=== PATIENT | female | born 1965 | race Caucasian/White ===

== ENCOUNTER → 2017-07-10 | Outpatient (CLI) | payer BC ==
[~2017-07-10] MED LIST: CEPH500T PO; DOCU-143 PO; DOCU100C37 PO; ESTR1TAB24 PO; HYDR-3454 PO; HYDR-3816 PO; IBUP-1773 PO; LORA10TA7 PO; MELO15TA39 PO; SIME80TA16 PO
--- NOTE | 2017-07-10 14:07 | Diagnostic Imaging Report ---
EXAMINATION: Supine abdomen at 12:18 p.m. INDICATION: Abdominal pain. FINDINGS: There is gas in both the large and small bowel in a nonspecific fashion. The amount of gas in both the large and small bowel has increased since the prior exam of 09/05/2016; however, there is still no evidence for bowel obstruction. There is a fair amount of fecal material throughout the colon. There is no mass or organomegaly identified. The 4 mm calcific density overlying the midportion of the left kidney seen previously is again evident. There is also suggestion of a similar-sized calcification along the superior pole of the right kidney. These findings are suspicious for nephrolithiasis. No other pathological calcification is identified. There may be a small phlebolith along the pelvis. The osseous structures are intact. There is mild levoscoliosis of the lumbar spine and dextroscoliosis of the lower thoracic spine. IMPRESSION: 1. The bowel gas pattern is nonspecific. There is no acute abnormality identified. 2. There is a fair amount of fecal material throughout the colon. 3. The calcifications overlying the kidneys do suggest nephrolithiasis. If further study is desired, then CT will be recommended. Dictated by: Dictated on workstation # [id number]
== END ==
LOC: RAD 11:51
PROVIDERS: ATTEND Family Medicine
DX: N28.9 Disorder of kidney and ureter, unspecified (principal); R10.12 Left upper quadrant pain
CPT/HCPCS: 74000

== ENCOUNTER → 2017-07-19 | Outpatient (CLI) | payer BC ==
--- NOTE | 2017-07-19 09:35 | Diagnostic Imaging Report ---
PROCEDURE: CT abdomen and pelvis without contrast. TECHNIQUE: Multiple contiguous axial images were obtained through the abdomen and pelvis without the use of intravenous contrast. INDICATION: Abdominal pain. COMPARISON: 10/19/2010. FINDINGS: Included views of the lung bases are clear. CT ABDOMEN: Normal appendix cannot be adequately identified, but there is no pericecal inflammation. Small bowel loops are nondistended. Multiple cystic foci are noted within the inferior pole renal pelvis on the left and are likely on the basis of peripelvic cysts. These are slightly more prominent when compared to 10/19/2010. Otherwise, the kidneys have an unremarkable noncontrast CT appearance. No renal or ureteral calculi seen on either side. Additionally, there is no hydroureteronephrosis or other evidence of obstruction. The spleen, liver, pancreas, and adrenal glands have an unremarkable noncontrast CT appearance. There is no loculated fluid collection, free fluid, or free air within the abdomen. No abnormal mesenteric or retroperitoneal adenopathy is seen. Bony structures show no acute abnormalities. CT PELVIS: Urinary bladder is unopacified. No calculi are seen within urinary bladder. There is no loculated fluid collection, free fluid, nor free air. No abnormal adenopathy is seen. Bony structures show no acute abnormalities. IMPRESSION: 1. No renal or ureter calculi or evidence of obstruction on either side. 2. Probable peripelvic renal cysts on the left. 3. No other acute abnormalities are seen within the abdomen or pelvis. Dictated by: Dictated on workstation # [id number]
== END ==
LOC: RAD 07:59
PROVIDERS: ATTEND Family Medicine
DX: R10.12 Left upper quadrant pain (principal)
CPT/HCPCS: 74176

== ENCOUNTER → 2017-08-23 | Outpatient (CLI) | payer BC ==
--- NOTE | 2017-08-23 13:37 | Diagnostic Imaging Report ---
Bilateral screening mammogram 2D views with tomosynthesis. The current study was also evaluated with a Computer Aided Detection (CAD) system. INDICATION: Screening. No current complaints stated on the questionnaire. COMPARISON: 08/22/2016. FINDINGS: The breasts are composed of scattered fibroglandular densities. No mass, architectural distortion or suspicious cluster of calcifications seen. Allowing for technique and positional differences, no suspicious change is seen. IMPRESSION: No significant change. ACR BI-RADS Category 2: Benign findings. Result letter will be mailed to the patient. Note: At least 10% of breast cancer is not imaged by mammography. Dictated by: Dictated on workstation # [id number]
== END ==
LOC: RAD 07:19
PROVIDERS: ATTEND Family Medicine
DX: Z12.31 Encounter for screening mammogram for malignant neoplasm of breast (principal)
CPT/HCPCS: 77067

== ENCOUNTER → 2018-04-08 | Outpatient (CLI) | payer BC ==
[~2018-04-08] MED LIST changes: +CATHETER FLUSH 10 ML SYR IV PRN; +HYDR-34 PO; -HYDR-3816 PO
[2018-04-08 09:32] VITALS: BP 129/85
--- NOTE | 2018-04-08 13:48 | STRESS TEST ---
DATE OF SERVICE: 04/08/2018 EXERCISE MYOVIEW STRESS TEST REPORT REFERRING PHYSICIAN: Dr. Christopher Allison. Baseline heart rate is 47. Baseline blood pressure 141/83. Baseline EKG is sinus rhythm with no ischemic changes. In summary, the patient was injected with 10.54 mCi of technetium-99 Myoview and the resting images were obtained. Then, the patient started on the treadmill. Started having frequent atrial and ventricular premature contractions then she had few episodes of 3 beats, nonsustained ventricular tachycardia, ventricular bigeminy and trigeminy persisted during exercise. She was able to finish a total of 4 minutes and 30 seconds on standard Agus protocol, achieving maximum heart rate of 144, which is 86% of maximum expected heart rate. With peak exercise level, EKG was showing minimal nondiagnostic ST changes, but frequent PVCs and APCs and few short runs of nonsustained ventricular tachycardia. The resting and stress images were reviewed and compared in the short axis, horizontal long axis, and vertical long axis views. Review of the images showed mild decreased uptake at the mid to apical inferior wall and inferoseptum. SSS is 5, SDS 3, TID value 0.92. On the gated images, the left ventricle appeared to be in normal size with normal contractility. Calculated ejection fraction 69%. CONCLUSION: 1. Poor exercise tolerance, a total of 4 minutes 30 seconds on standard Agus protocol, total of 6.4 METS achieving 86% of maximum expected heart rate. 2. Exercise induced frequent premature ventricular ectopy, ventricular bigeminy and few runs of nonsustained ventricular tachycardia, 3 beats at most. 3. Mild ischemia involving the mid to apical inferior wall and inferoseptum. 4. Normal left ventricular size with normal contractility. Calculated ejection fraction 69%. Job ID: [id number] DocumentID: [id number] Dictated Date: 04/08/2018 11:24:35 Hr Coordinator Date: 04/08/2018 13:48:05 Dictated By: MANISHA ABDUL MD
== END ==
LOC: CARD 08:08
PROVIDERS: ATTEND Internal Medicine Cardiovascular Disease
DX: R07.89 Other chest pain (principal); R68.84 Jaw pain; R55 Syncope and collapse
CPT/HCPCS: 78452; 93017; 93306

== ENCOUNTER 2018-04-10 08:41 | Day surgery (SDC) | payer BC ==
[2018-04-10] VITALS (11 sets, daily range): BP systolic 103–120; BP diastolic 65–96
[~2018-04-10] VITALS: Ht 162.6 cm; Wt 55.3 kg
[~2018-04-10 08:41] MED LIST changes: -CATHETER FLUSH 10 ML SYR IV PRN
[2018-04-10] MEDS ORDERED: NS IV 1000 ML 3,000 ML ONE (08:49)
[2018-04-10 09:21] LABS: HEMOGLOBIN 14.7 G/DL (11.5-16.0); MEAN PLATELET VOLUME 10.5 FL (7.4-10.4); RED BLOOD COUNT 4.99 10^6/uL (4.35-5.85); RED CELL DISTRIBUTION WIDTH 13.1 % (10.0-14.5); WHITE BLOOD COUNT 4.2 10^3/uL (4.3-11.0)
[2018-04-10 09:33] LABS: PROTHROMBIN TIME PATIENT 12.9 SEC (12.2-14.7)
--- NOTE | 2018-04-10 09:35 | Diagnostic Imaging Report ---
Indication: Coronary artery disease Frontal chest obtained at 9:15 hours a.m. Heart is borderline in size. Mediastinal silhouette is unremarkable. There is mild dextroscoliotic change of the thoracic spine. There is no focal infiltrate or pneumothorax or pleural fluid. IMPRESSION: No acute process in the chest. Dictated by: Dictated on workstation # [id number]
[2018-04-10 09:44] LABS: ALANINE AMINOTRANSFERASE 11 U/L (0-55); ALBUMIN 4.6 GM/DL (3.2-4.5); ALKALINE PHOSPHATASE 60 U/L (40-136); BILIRUBIN,TOTAL 0.7 MG/DL (0.1-1.0); BUN/CREATININE RATIO 21; CALCIUM 9.4 MG/DL (8.5-10.1); CARBON DIOXIDE 25 MMOL/L (21-32); CHLORIDE 107 MMOL/L (98-107); CHOLESTEROL 224 MG/DL (< 200); CREATININE SERUM 0.77 MG/DL (0.60-1.30); GFR ESTIMATED > 60; GLUCOSE 75 MG/DL (70-105); HDL CHOLESTEROL 75 MG/DL (40-60); SODIUM 142 MMOL/L (135-145); TOTAL PROTEIN 7.2 GM/DL (6.4-8.2); TRIGLYCERIDES 74 MG/DL (<150); VLDL CHOLESTEROL 15 MG/DL (5-40)
[2018-04-10] MEDS ORDERED: NS IV 1000 ML 1,000 ML IV SCH ×2 (09:45→12:36)
--- NOTE | 2018-04-10 11:59 | Cardiac Procedure Note-CS/ASA ---
Pre-Procedure Note Pre-Op Procedure Note H&P Reviewed The H&P was reviewed, patient examined and no changes noted. Date H&P Reviewed: April 10, 2018 Time H&P Reviewed: 11:58 Conscious Sedation Pre-Proced Time Reviewed: 11:58 ASA Class: 3 Airway Mallampati Classification: ([place] appropriate class) I. II. III, IV Lungs Heart ASA score ASA 1: a normal healthy patient ASA 2: a patient with a mild systemic disease (mid diabetes, controlled hypertension, obesity x ASA 3: a patient with a severe systemic disease that limits activity (angina , COPD, prior Myocardial infarction) ASA 4: a patient with an incapacitating disease that is a constant threat to life (CHF, renal failure) ASA 5: a moribund patient not expected to survive 24 hrs. (ruptured aneurysm) ASA 6: a declared brain patient whose organs are being harvested. For emergent operations, add the letter E after the classification Grade 3 1 - Grade 3 Sedation Plan: Analgesia, Amnesia, Plan communicated to team members, Discussed options with patient/fam, Discussed risks with patient/fam Note The patient is an appropriate candidate to undergo the planned procedure, sedation, and anesthesia. The patient immediately re-assessed prior to indication. MANISHA ABDUL MD April 10, 2018 11:59
[2018-04-10] MEDS ORDERED: HEParin 1000 UNIT/ML (10ML VIAL) FOR BOLUS ONE (12:00)
[2018-04-10] MEDS ORDERED: LIDOCAINE 1% INJ 20 ML 20 ML VIAL ONE (12:00)
[2018-04-10] MEDS ORDERED: MIDAZOLAM 5 MG/5 ML (VERSED) VIAL ONE (12:03)
[2018-04-10] MEDS ORDERED: fentaNYL INJECTION 100 MCG/2 ML AMP ONE (12:03)
--- NOTE | 2018-04-10 12:39 | Discharge Inst-Post CATH ---
Discharge Inst-CATH Post Cardiac Cath D/C Inst Follow Up/Plan Appointment with Dr Malcolm in 2-[address] Escalante next week CARDIAC CATH DISCHARGE INSTRUCTIONS *Hold Metformin for 48 hours post heart cath. ACTIVITY * Go Home directly and rest. * Limit activity of the leg (or wrist if it was used) for 7 days including aerobics, swimming, jogging, bicycling, etc. * Restrict stair-climbing for 7 days if possible, if not, climb up with your non -cath leg, then bring together on the same step. * Avoid lifting, pushing, pulling or excessive movement of the affected extremity for 7 days. * Customary sexual activity may be resumed after 2 days-use caution not to use a position that strains or causes pain to the affected extremity. * No driving for 24 hours. * NO SMOKING. * Avoid straining for bowel movements for 7 days. * Gentle walking on level ground is allowed. * Returning to work will depend on the type of procedure and the results. Your doctor will discuss this with you. CALL YOUR DOCTOR FOR ANY OF THE FOLLOWING: *If bleeding from the puncture site occurs- Apply gentle pressure to site with clean cloth and call your doctor or EMS. * If a knot or lump forms under the skin, increases in size, or causes pain. * If bruising appears to be worsening or moving further down your leg instead of disappearing. * Temperature above 101 F. CARE OF YOUR GROIN INCISION; * Bruising or purple discoloration of the skin near the puncture site is common. * You may shower only, no bathtub bathing for 5 days. Be careful to avoid slipping as your leg may feel stiff. * If a closure device was used on your femoral artery, please see the attached guide regarding care of the device and your leg. * REMOVE the dressing from your groin the next day after your procedure in the shower. CARE OF YOUR WRIST INCISION; * Bruising or purple discoloration of the skin near the puncture site is common. * You may shower. * DO NOT submerge wrist. * Remove dressing in 24 hours. MANISHA MALCOLM MD April 10, 2018 12:38
--- NOTE | 2018-04-10 12:42 | Cardiac Cath Report ---
Cardiac Cath Report Physician (s)/Title Inspector (s) Physician MANISHA ABDUL MD Pre-Procedure Diagnosis Pre-Procedure Diagnosis: Ventricular tachycardia Post-Procedure Note Procedure Start Date: April 10, 2018 Name of Procedure: Left heart catheterization Findings/Procedure Note PROCEDURE NOTE: After explaining the procedure to the patient, all pros and cons were explained , all questions were answered. The patient signed the consent and then she was placed on the cardiac catheterization laboratory. Groin was prepped SL fashion local anesthesia was used. Sheath placed in the right femoral artery. Hazel right and left catheter were used to access the coronary system. Pigtail was used to access the left ventricular cavity. Left ventriculogram was done At the end of the procedure the sheath was removed. Closure device was used FINDINGS: Hemodynamics LV 91/10, end-diastolic pressure of 10 Aorta 95/52 L of 69 ANATOMY: Left Main is free of obstructive disease Left Anterior Descending is free of obstructive disease Left Circumflex is free of obstructive disease Right Coronory Artery is free of obstructive disease LV Gram was done showing normal LV size and function with ejection fraction 60 percent CONCLUSION: 1. Normal coronary system with nonobstructive disease 2. Normal left ventricular size and systolic function estimated ejection fraction 60 percent DISCUSSION AND RECOMMENDATION: Patient cannot tolerate beta blockers or calcium blockers due to hypotension, consideration for EP evaluation Anesthesia Type: Conscious Sedation Estimated blood loss (mL): 10 ml Contrast Amount: 36 ml Total Radiation Dose: 52 mGy Post-Procedure Diagnosis Post-operative diagnosis: Ventricular tachycardia Coronary artery disease Hypotension Arthritis MANISHA ABDUL MD April 10, 2018 12:42
[2018-04-10] MEDS ORDERED: PATIENT MAY USE OWN MEDS, ALL PO SCH (12:45)
== END 2018-04-10 17:00 | disposition home or self-care (01) ==
LOC: CATH 08:41 → SURG 12:57 → CATH 17:00
PROVIDERS: ATTEND Internal Medicine Cardiovascular Disease
DX: I47.2 Ventricular tachycardia (principal); I25.10 Atherosclerotic heart disease of native coronary artery without angina pectoris; I95.9 Hypotension, unspecified; K21.9 Gastro-esophageal reflux disease without esophagitis; R12 Heartburn; R55 Syncope and collapse; R06.02 Shortness of breath; R07.89 Other chest pain
CPT/HCPCS: 36415; 71045; 80053; 80061; 84443; 85027; 85610; 85730; 87081; 93458

== ENCOUNTER → 2018-08-08 | Outpatient (CLI) | payer BC ==
--- NOTE | 2018-08-08 19:16 | Diagnostic Imaging Report ---
INDICATION: Left flank pain. FINDINGS: Sonographic evaluation of the left kidney demonstrates the left kidney to measure 9.8 x 4.5 x 4.3 cm. There does appear to be some cortical thinning of the left kidney. There is an irregular cystic mass in the left kidney measuring approximately 2.2 x 2.7 x 1.2 cm. No internal blood flow is seen. No calculus or hydronephrosis is identified. The bladder is unremarkable. Left ureteral jet is visualized. IMPRESSION: Slightly irregular left renal cyst since study of 07/19/2017. No calculus or hydronephrosis is seen. Dictated by: Dictated on workstation # [id number]
== END ==
LOC: RAD 14:33
PROVIDERS: ATTEND Family Medicine
DX: N28.1 Cyst of kidney, acquired (principal)
CPT/HCPCS: 76775

== ENCOUNTER → 2018-08-27 | Outpatient (CLI) | payer BC ==
--- NOTE | 2018-08-27 12:55 | Diagnostic Imaging Report ---
INDICATION: Routine screening. COMPARISON: Comparison is made with prior study from 08/23/2017 and 08/22/2016. TECHNIQUE: 2D and 3D bilateral screening mammography was performed with computer-aided detection (CAD) system. 3D tomosynthesis was also performed and reviewed. FINDINGS: Scattered fibroglandular densities are identified bilaterally. The parenchymal pattern is stable. No dominant mass or malignant appearing microcalcifications are seen. The axillae are unremarkable. IMPRESSION: No mammographic features suspicious for malignancy are identified. ACR BI-RADS Category 1: Negative. Result letter will be mailed to the patient. Note: At least 10% of breast cancer is not imaged by mammography. Dictated by: Dictated on workstation # [id number]
== END ==
LOC: RAD 08:31
PROVIDERS: ATTEND Family Medicine
DX: Z12.31 Encounter for screening mammogram for malignant neoplasm of breast (principal)
CPT/HCPCS: 77067

== ENCOUNTER → 2018-10-01 | Outpatient (CLI) | payer BC ==
[~2018-10-01] MED LIST changes: +IOHEXOL 350 MG/ML 100 ML (OMNIPAQUE 350) VIAL IV ONE; +NS 250 ML (IVPB) BAG IV ONE; +RECEIVED CONTRAST (Hold Metformin) IV SCH
[2018-10-01 07:47] LABS: BUN/CREATININE RATIO 23; CREATININE SERUM 0.84 MG/DL (0.60-1.30); GFR ESTIMATED > 60
--- NOTE | 2018-10-01 11:30 | Diagnostic Imaging Report ---
PROCEDURE: CT abdomen and pelvis with and without contrast. TECHNIQUE: Precontrast acquisitions were acquired through the abdomen and pelvis. Multiple contiguous axial images were obtained through the abdomen and pelvis after the administration of intravenous contrast. INDICATION: Abdominal pain. FINDINGS: The previous CT abdomen/pelvis exam of 07/19/2017 suggested parapelvic renal cysts on the left but failed to show any sign of nephrolithiasis or urolithiasis. On this study, the parapelvic cysts on the left seen previously are again evident and do not seem to have changed significantly. There is still no evidence for nephrolithiasis or urolithiasis and the kidneys do not appear to be obstructed. There is no sign of a solid renal mass either. The liver is homogeneous and not enlarged. The spleen, pancreas, adrenals, gallbladder, aorta, and inferior vena cava show no sign of an acute abnormality. The stomach is not well distended and consequently difficult to assess. There is no pelvic mass or free fluid collection evident. There is a considerable amount of fecal material in the ascending colon and cecum. The appendix is not well visualized, but there are no indirect signs of acute appendicitis. The uterus is surgically absent. The urinary bladder is grossly unremarkable. The bony lesion of mixed density in the right ilium seen on the previous study is again evident and not significantly changed. There is no acute bony abnormality appreciated. The lung bases are clear. IMPRESSION: 1. There is no acute abnormality of the abdomen or pelvis. 2. The parapelvic cysts associated with the left kidney seen previously are again evident and no different. There is no evidence for obstruction of either collecting system. 3. The bony lesion in the right pelvis noted on the prior study appears stable. Dictated by: Dictated on workstation # [id number]
== END ==
LOC: RAD 07:19
PROVIDERS: ATTEND Family Medicine
DX: N28.1 Cyst of kidney, acquired (principal); M89.9 Disorder of bone, unspecified
CPT/HCPCS: 36415; 74178; 82565; 84520

== ENCOUNTER → 2019-09-04 | Outpatient (CLI) | payer BC ==
[~2019-09-04] MED LIST changes: -HYDR-3454 PO; +HYDR-3455 PO; -IOHEXOL 350 MG/ML 100 ML (OMNIPAQUE 350) VIAL IV ONE; -NS 250 ML (IVPB) BAG IV ONE; -RECEIVED CONTRAST (Hold Metformin) IV SCH
--- NOTE | 2019-09-04 14:24 | Diagnostic Imaging Report ---
INDICATION: Routine screening. COMPARISON: Comparison is made with prior mammograms of 08/27/2018 and 08/23/2017. 2-D and 3-D bilateral screening mammography was performed. The current study was also evaluated with a Computer Aided Detection (CAD) system. 3-D tomosynthesis was also performed and reviewed. FINDINGS: Scattered fibroglandular densities are identified bilaterally. No dominant mass or malignant-appearing microcalcifications are seen. Axillae are unremarkable. IMPRESSION: No mammographic features suspicious for malignancy are identified. ACR BI-RADS Category 1: Negative. Result letter will be mailed to the patient. Note: At least 10% of breast cancer is not imaged by mammography. Dictated by: Dictated on workstation # [id number]
== END ==
LOC: RAD 09:52
PROVIDERS: ATTEND Family Medicine
DX: Z12.31 Encounter for screening mammogram for malignant neoplasm of breast (principal)
CPT/HCPCS: 77067

== ENCOUNTER → 2020-09-06 | Outpatient (CLI) | payer BC ==
--- NOTE | 2020-09-07 13:12 | Diagnostic Imaging Report ---
INDICATION: Routine screening. COMPARISON: 09/04/2019 and 08/27/2018. TECHNIQUE: 2D and 3D bilateral screening mammography was performed with CAD. FINDINGS: Scattered fibroglandular densities are identified bilaterally. The parenchymal pattern is stable. No mass or malignant appearing microcalcifications are seen. The axillae are unremarkable. IMPRESSION: No mammographic features suspicious for malignancy are identified. ACR BI-RADS Category 1: Negative. Result letter will be mailed to the patient. Note: At least 10% of breast cancer is not imaged by mammography. Dictated by: Dictated on workstation # [id number]
== END ==
LOC: RAD 14:30
PROVIDERS: ATTEND Family Medicine
DX: Z12.31 Encounter for screening mammogram for malignant neoplasm of breast (principal)
CPT/HCPCS: 77063; 77067

== ENCOUNTER → 2021-09-07 | Outpatient (CLI) | payer BC ==
--- NOTE | 2021-09-08 09:47 | Diagnostic Imaging Report ---
INDICATION: Routine screening. COMPARISON is made with prior mammograms from 09/06/2020 and 09/04/2019. 2-D and 3-D bilateral screening mammography was performed with CAD. Scattered fibroglandular densities are identified bilaterally. The parenchymal pattern is stable. No mass or malignant-appearing microcalcifications are seen. Axillae are unremarkable. IMPRESSION: BI-RADS Category 1 No mammographic features suspicious for malignancy are identified. ACR BI-RADS Category 1: Negative. Result letter will be mailed to the patient. Note: At least 10% of breast cancer is not imaged by mammography. Dictated by: Dictated on workstation # [id number]
== END ==
LOC: RAD 15:15
PROVIDERS: ATTEND Family Medicine
DX: Z12.31 Encounter for screening mammogram for malignant neoplasm of breast (principal)
CPT/HCPCS: 77063; 77067

== ENCOUNTER 2021-10-11 05:37 | Outpatient (CLI) | payer BC ==
[~2021-10-11] VITALS: Ht 162.6 cm; Wt 50.4 kg
[2021-10-11] MEDS ORDERED: NAPR220C11 PO (15:43)
== END 2021-10-11 16:05 | disposition home or self-care (01) ==
LOC: PREOP 05:37 → EDSTATUS 10:30 → PREOP 16:05
PROVIDERS: ATTEND Surgery

== ENCOUNTER 2021-10-18 07:52 | Day surgery (SDC) | payer BC ==
[2021-10-18] VITALS (7 sets, daily range): BP systolic 86–115; BP diastolic 55–72
[~2021-10-18] VITALS: Ht 162.6 cm; Wt 50.4 kg
[~2021-10-18 07:52] MED LIST changes: +NAPR220C11 PO
[2021-10-18] MEDS ORDERED: LACTATED RINGERS 0 ML IV ONE (07:55)
[2021-10-18] MEDS ORDERED: LACTATED RINGERS 1,000 ML IV ONE (07:58)
[2021-10-18] MEDS ORDERED: LACTATED RINGERS 1,000 ML IV STA (08:05)
[2021-10-18] MEDS ORDERED: PROPOFOL INJECTION 50 ML IV ONE (08:23)
[2021-10-18] MEDS ORDERED: MIDAZOLAM 2 MG/2 ML (VERSED) VIAL ONE (08:23)
--- NOTE | 2021-10-18 09:01 | Progress Note-Post Operative ---
Post-Operative Progess Note Surgeon (s)/Central Office Trouble Shooter (s) Surgeon SALBADOR HARDEN DO Central Office Trouble Shooter: na Pre-Operative Diagnosis family hx colon cancer Post-Operative Diagnosis normal colon Procedure & Operative Findings Date of Procedure 10/18/21 Procedure Performed/Findings colonoscopy Anesthesia Type per salesperson automobiles Estimated Blood Loss Estimated blood loss (mL): minimal Specimens/Packing Specimens Removed na SALBADOR HARDEN DO Oct 18, 2021 09:01
--- NOTE | 2021-10-18 09:02 | Discharge Inst-Simple/Standard ---
Discharge Inst-Standard Patient Instructions/Follow Up Plan of Care/Instructions/FU: Aranza 5 years. Any issues before that be seen at that time. Activity as Tolerated: Yes Discharge Diet: Regular Diet (high fiber) SALBADOR HARDEN DO Oct 18, 2021 09:02
--- NOTE | 2021-10-18 09:14 | Anesthesia-General Post-Op ---
MAC Patient Condition Mental Status/LOC: Same as Preop Cardiovascular: Satisfactory Nausea/Vomiting: Absent Respiratory: Satisfactory Pain: Controlled Complications: Absent Post Op Complications Complications None Follow Up Care/Instructions Patient Instructions None needed. Anesthesiology Discharge Order Discharge Order Patient is doing well, no complaints, stable vital signs, no apparent adverse anesthesia problems. No complications reported per nursing. ALVA BO CRNA Oct 18, 2021 09:14
--- NOTE | 2021-10-18 15:45 | OPERATIVE REPORT ---
DATE OF SERVICE: 10/18/2021 PREOPERATIVE DIAGNOSIS: Family history of colon cancer. POSTOPERATIVE DIAGNOSIS: Normal colon. PROCEDURE PERFORMED: Colonoscopy. SURGEON: Salbador Cobian DO ANESTHESIA: Per HOUSE REPAIRER. ESTIMATED BLOOD LOSS: None. COMPLICATIONS: None. INDICATIONS FOR PROCEDURE: The patient is a 56-year-old female with family history of colon cancer. She understands the risks and benefits of the procedure and wished to proceed. Consent was signed in the chart. DESCRIPTION OF PROCEDURE: The patient was taken to the endoscopy suite and placed in the left lateral recumbent position. Timeout was performed. Digital rectal exam was performed. There were no palpable polyps, masses or ulcerations. Scope was inserted in the rectum and advanced all the way to cecum with minimal difficulty. Prep was adequate. Scope was slowly retracted back. No polyps, masses or ulcerations within the cecum, ascending, transverse, descending, and sigmoid colon. Once in the rectum, scope was retroflexed noting no other pathology. Scope was returned to its normal position, slowly withdrawn until completely removed. The patient tolerated the procedure well without any complications. She was taken to recovery room in stable condition. RECOMMENDATIONS: The patient will need repeat colonoscopy in 5 years. Any issues before that be seen at that time. Job ID: [id number] DocumentID: [id number] Dictated Date: 10/18/2021 09:04:13 Tank Truck Operator Date: 10/18/2021 15:43:54 Dictated By: SALBADOR COBIAN DO
== END 2021-10-18 10:15 | disposition home or self-care (01) ==
LOC: ENDO 07:52
PROVIDERS: ATTEND Surgery
DX: Z12.11 Encounter for screening for malignant neoplasm of colon (principal); E78.5 Hyperlipidemia, unspecified; F41.9 Anxiety disorder, unspecified; F32.A Depression, unspecified; Z90.710 Acquired absence of both cervix and uterus; Z79.899 Other long term (current) drug therapy; Z90.89 Acquired absence of other organs; Z80.0 Family history of malignant neoplasm of digestive organs; Z80.3 Family history of malignant neoplasm of breast

== ENCOUNTER → 2022-09-08 | Outpatient (CLI) | payer BC ==
--- NOTE | 2022-09-11 09:57 | Diagnostic Imaging Report ---
INDICATION: Routine screening. COMPARISON: 09/07/2021 and 09/06/2020. TECHNIQUE: 2D and 3D bilateral screening mammography was performed with CAD. FINDINGS: Scattered fibroglandular densities are identified bilaterally. There is a density in the central right breast just lateral to the nipple line on the CC view. This is not well-seen on the MLO view. Additional views are recommended. The left breast is unremarkable. The axillae are unremarkable. No malignant-appearing microcalcifications are seen. IMPRESSION: Right breast density. Additional views are recommended for further evaluation. ACR BI-RADS Category 0: Incomplete. (Needs additional imaging evaluation). Result letter will be mailed to the patient. Note: At least 10% of breast cancer is not imaged by mammography. Dictated by: Dictated on workstation # [id number]
== END ==
LOC: RAD 15:00
PROVIDERS: ATTEND Family Medicine
DX: Z12.31 Encounter for screening mammogram for malignant neoplasm of breast (principal)
CPT/HCPCS: 77063; 77067

== ENCOUNTER → 2022-09-21 | Outpatient (CLI) | payer BC ==
--- NOTE | 2022-09-21 12:57 | Diagnostic Imaging Report ---
INDICATION: Right breast density. Patient presents for additional views. COMPARISON: Correlation is made with the screening study from 09/08/2022. TECHNIQUE: Unilateral right 2D and 3D diagnostic mammography was performed. This included spot compression CC as well as conventional 90 degree lateral views. FINDINGS: There is some mild residual density in the lower and slightly outer right breast 3 cm from the nipple. Further evaluation of this area with ultrasound is recommended. No other abnormality is seen. IMPRESSION: Mild residual density after additional views in the lower outer right breast 3 cm from the nipple. Further evaluation of this area with ultrasound is recommended and will be performed today. ACR BI-RADS Category 0: Incomplete. (Needs additional imaging evaluation). Result letter will be mailed to the patient. Note: At least 10% of breast cancer is not imaged by mammography. Dictated by: Dictated on workstation # [id number]
--- NOTE | 2022-09-21 16:40 | Diagnostic Imaging Report ---
INDICATION: Right breast density. Correlation is made with diagnostic mammogram earlier the same day and screening mammogram from 09/08/2022. There is a tiny cyst at the 8 o'clock location right breast, 3 cm from the nipple measuring 4 mm x 2 mm x 3 mm. This correlates to the density noted mammographically. No internal vascularity is seen. No solid masses detected. IMPRESSION: Tiny cyst 8 o'clock location right breast, corresponding to the mammographic density. The patient may return to routine annual screening mammography. ACR BI-RADS Category 2: Benign findings. Result letter will be mailed to the patient. Note: At least 10% of breast cancer is not imaged by mammography. BI-RADS Category 2 Dictated by: Dictated on workstation # [id number]
== END ==
LOC: RAD 12:21
PROVIDERS: ATTEND Family Medicine
DX: R92.2 Inconclusive mammogram (principal)
CPT/HCPCS: 76642; 77065; G0279

== ENCOUNTER 2022-10-19 11:30 | Emergency (ER) | payer BC ==
[~2022-10-19] VITALS: Ht 162 cm; Wt 48.0 kg
[2022-10-19 12:08] LABS: BILIRUBIN,URINE NEGATIVE (NEGATIVE); CLARITY,URINE CLEAR; COLOR,URINE YELLOW; GLUCOSE, URINE (UA) NEGATIVE (NEGATIVE); KETONES,URINE NEGATIVE (NEGATIVE); LEUKOCYTE ESTERASE ,URINE NEGATIVE (NEGATIVE); NITRITE,URINE NEGATIVE (NEGATIVE); PROTEIN,URINE NEGATIVE (NEGATIVE)
[2022-10-19 12:14] LABS: BACTERIA,URINE NEGATIVE /HPF; SQUAMOUS EPITHELIAL CELL,UR 0-2 /HPF
[2022-10-19 12:33] LABS: BASOPHILS % (AUTO) 0 % (0-10); EOSINOPHILS % (AUTO) 0 % (0-10); HEMATOCRIT 42 % (35-52); HEMOGLOBIN 14.3 g/dL (11.5-16.0); LYMPHOCYTES # (AUTO) 0.8 10^3/uL (1.0-4.0); LYMPHOCYTES % (AUTO) 17 % (12-44); MEAN CORPUSCULAR HEMOGLOBIN 30 pg (25-34); MEAN CORPUSCULAR HGB CONC 34 g/dL (32-36); MEAN CORPUSCULAR VOLUME 89 fL (80-99); MEAN PLATELET VOLUME 10.2 fL (9.0-12.2); MONOCYTES # (AUTO) 0.3 10^3/uL (0.0-1.0); MONOCYTES % (AUTO) 7 % (0-12); NEUTROPHILS # (AUTO) 3.4 10^3/uL (1.8-7.8); NEUTROPHILS % (AUTO) 76 % (42-75); PLATELET COUNT 235 10^3/uL (130-400); WHITE BLOOD COUNT 4.5 10^3/uL (4.3-11.0)
[2022-10-19 12:42] LABS: ALBUMIN 4.4 GM/DL (3.2-4.5); POTASSIUM 4.1 MMOL/L (3.6-5.0)
[2022-10-19 12:44] LABS: CALCIUM 9.6 MG/DL (8.5-10.1)
[2022-10-19 12:45] LABS: TOTAL PROTEIN 7.2 GM/DL (6.4-8.2)
[2022-10-19 12:47] LABS: BILIRUBIN,TOTAL 0.6 MG/DL (0.1-1.0)
[2022-10-19 12:48] LABS: CREATININE SERUM 0.76 MG/DL (0.60-1.30)
[2022-10-19 13:31] LABS: INR 0.9 (0.8-1.4); PROTHROMBIN TIME PATIENT 12.9 SEC (12.2-14.7)
--- NOTE | 2022-10-19 13:49 | Diagnostic Imaging Report ---
EXAMINATION: Chest radiograph, portable AP view. DATE: 10/19/2022 1:19 PM INDICATION: 57-year-old female, chest pain. COMPARISON: April 10, 2018. FINDINGS: Heart size and mediastinal contours are unchanged. There is no identified pneumothorax. There is no large pleural effusion. There is no identified focal airspace consolidation. There is a thoracic dextroscoliosis. IMPRESSION: 1. No identified acute cardiopulmonary abnormality. Dictated by: Dictated on workstation # [id number]
[2022-10-19 13:50] LABS: MAGNESIUM 2.1 MG/DL (1.6-2.4)
[2022-10-19] MEDS ORDERED: RT-ALBUTEROL HFA 8.5 GM INHALER IH STA (14:01)
--- NOTE | 2022-10-19 15:55 | ED General ---
General Chief Complaint: Abdominal/GI Problems Stated Complaint: ABD PAIN/BLOATING VAG BURNING Nursing Triage Note: PT AMBULATORY TO ER. PT C/O ABD PAIN/DISTENTION ONSET SUNDAY, REPORTS ON SUNDAY PAIN WAS DOWN IN LOWER ABD, BLOATING CONTINUED, ON SUNDAY C/O VAGINAL BURNING. PT REPORTS ASSOCIATED NAUSEA. PT TESTED COVID POSITIVE ON 10/01 History of Present Illness Date Seen by Provider: Oct 19, 2022 Time Seen by Provider: 11:47 Allergies and Home Medications Allergies Coded Allergies: latex (Unverified Allergy, Unknown, 10/11/21) Patient Home Medication List Home Medication List Reviewed: Yes Estradiol (Estradiol Tablet) 1 Mg Tablet, 0.25 MG PO DAILY, (Reported) Entered as Reported by: ANI NORRIS on 08/08/16 1005 Naproxen Sodium (Aleve) 220 Mg Capsule, 220 MG PO HS, (Reported) Entered as Reported by: RACHELLE BURTON on 10/11/21 1543 Past Fblspid-Lcgzru-Ekaqiz Hx Patient Social History Tobacco Use?: No Use of E-Cig and/or Vaping dev: No Substance use?: No Alcohol Use?: No Immunizations Up To Date First/Initial COVID19 Vaccinat: RECEIVED, UNK WHEN Second COVID19 Vaccination Ruiz: RECEIVED, UNK WHEN 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 ONSET OF GLUACOMA) Loss of Vision: Bilateral Hearing Impairment: Denies Cancer: No (POS) Psychosocial: Yes Anxiety, Depression Integumentary: No Blood Disorders: No Adverse Reaction/Blood Tranf: No (N/A) Family Medical History Colon cancer Physical Exam Vital Signs Vital Signs - First Documented 10/19/22 10/19/22 11:36 14:51 Temp 36.9 Pulse 70 Resp 18 B/P (MAP) 144/99 (114) Pulse Ox 98 O2 Delivery Room Air Capillary Refill : Height, Weight, BMI Height: 5'4.00" Weight: 122lbs. 0.0oz. [id number]; 18.00 BMI Method: Progress/Results/Core Measures Suspected Sepsis SIRS Temperature: Pulse: 70 Respiratory Rate: 18 Laboratory Tests 10/19/22 12:25: White Blood Count 4.5 Blood Pressure 144 /99 Mean: 91 Laboratory Tests 10/19/22 12:25: Creatinine 0.76, INR Comment 0.9, Platelet Count 235, Total Bilirubin 0.6 Results/Orders Lab Results Laboratory Tests Test 10/19/22 11:48 10/19/22 12:25 10/19/22 12:58 10/19/22 14:20 Range/Units Urine Color YELLOW Urine Clarity CLEAR Urine pH 6.0 5-9 Urine Specific [place] 1.015 L 1.016-1.022 Urine Protein NEGATIVE NEGATIVE Urine Glucose (UA) NEGATIVE NEGATIVE Urine Ketones NEGATIVE NEGATIVE Urine Nitrite NEGATIVE NEGATIVE Urine Bilirubin NEGATIVE NEGATIVE Urine Urobilinogen 0.2 < = 1.0 MG/DL Urine Leukocyte Esterase NEGATIVE NEGATIVE Urine RBC (Auto) NEGATIVE NEGATIVE Urine RBC NONE /HPF Urine WBC NONE /HPF Urine Squamous Epithelial Cells 0-2 /HPF Urine Crystals NONE /LPF Urine Bacteria NEGATIVE /HPF Urine Casts NONE /LPF Urine Mucus NEGATIVE /LPF Urine Culture Indicated NO White Blood Count 4.5 4.3-11.0 10^3/uL Red Blood Count 4.71 3.80-5.11 10^6/uL Hemoglobin 14.3 11.5-16.0 g/dL Hematocrit 42 35-52 % Mean Corpuscular Volume 89 80-99 fL Mean Corpuscular Hemoglobin 30 25-34 pg Mean Corpuscular Hemoglobin Concent 34 32-36 g/dL Red Cell Distribution Width 12.0 10.0-14.5 % Platelet Count 235 130-400 10^3/uL Mean Platelet Volume 10.2 9.0-12.2 fL Immature Granulocyte % (Auto) 0 % Neutrophils (%) (Auto) 76 H 42-75 % Lymphocytes (%) (Auto) 17 12-44 % Monocytes (%) (Auto) 7 0-12 % Eosinophils (%) (Auto) 0 0-10 % Basophils (%) (Auto) 0 0-10 % Neutrophils # (Auto) 3.4 1.8-7.8 10^3/uL Lymphocytes # (Auto) 0.8 L 1.0-4.0 10^3/uL Monocytes # (Auto) 0.3 0.0-1.0 10^3/uL Eosinophils # (Auto) 0.0 0.0-0.3 10^3/uL Basophils # (Auto) 0.0 0.0-0.1 10^3/uL Immature Granulocyte # (Auto) 0.0 0.0-0.1 10^3/uL Prothrombin Time 12.9 12.2-14.7 SEC INR Comment 0.9 0.8-1.4 Activated Partial Thromboplast Time 27 24-35 SEC D-Dimer <= 0.27 0.00-0.49 UG/ML Sodium Level 142 135-145 MMOL/L Potassium Level 4.1 3.6-5.0 MMOL/L Chloride Level 105 98-107 MMOL/L Carbon Dioxide Level 24 21-32 MMOL/L Anion Gap 13 5-14 MMOL/L Blood Urea Nitrogen 16 7-18 MG/DL Creatinine 0.76 0.60-1.30 MG/DL Estimat Glomerular Filtration Rate 90 BUN/Creatinine Ratio 21 Glucose Level 97 70-105 MG/DL Calcium Level 9.6 8.5-10.1 MG/DL Corrected Calcium 9.3 8.5-10.1 MG/DL Magnesium Level 2.1 1.6-2.4 MG/DL Total Bilirubin 0.6 0.1-1.0 MG/DL Aspartate Amino Transf (AST/SGOT) 14 5-34 U/L Alanine Aminotransferase (ALT/SGPT) 14 0-55 U/L Alkaline Phosphatase 58 40-136 U/L Myoglobin 34.7 10.0-92.0 NG/ML Troponin I 0.032 H 0.033 H <0.028 NG/ML C-Reactive Protein High Sensitivity 0.25 0.00-0.50 MG/DL Total Protein 7.2 6.4-8.2 GM/DL Albumin 4.4 3.2-4.5 GM/DL Lipase 27 8-78 U/L Influenza Type A (RT-PCR) Not Detected Not Detecte Influenza Type B (RT-PCR) Not Detected Not Detecte My Orders Jamshid - KALLIE SCOTT MD Cbc With Automated Diff (10/19/22 12:21) Comprehensive Metabolic Panel (10/19/22 12:21) Hs C Reactive Protein (10/19/22 12:21) Lipase (10/19/22 12:21) Ed Iv/Invasive Line Start (10/19/22 12:21) Magnesium (10/19/22 12:49) Chest 1 View, Ap/Pa Only (10/19/22 12:49) Ekg Tracing (10/19/22 12:49) Myoglobin Serum (10/19/22 12:49) Protime With Inr (10/19/22 12:49) Partial Thromboplastin Time (10/19/22 12:49) Monitor-Rhythm Ecg Trace Only (10/19/22 12:49) Troponin I Kidder (10/19/22 12:49) Fibrin Degradation Products (10/19/22 12:49) Influenza A And B By Pcr (10/19/22 12:58) Isolation Central Supply Req (10/19/22 13:56) Albuterol Inhaler (Albuterol) (10/19/22 14:01) Troponin I Kidder (10/19/22 14:25) Vital Signs/I&O 10/19/22 10/19/22 10/19/22 10/19/22 11:36 14:51 15:21 15:57 Temp 36.9 Pulse 70 68 75 77 Resp 18 18 18 18 B/P (MAP) 144/99 (114) 123/96 (105) 115/79 (91) 111/78 Pulse Ox 98 100 99 98 O2 Delivery Room Air Room Air Room Air Capillary Refill : Blood Pressure Mean: 91 ECG Initial ECG Impression Date: Oct 19, 2022 Initial ECG Impression Time: 12:57 Initial ECG Rate: 61 Initial ECG Rhythm: Normal Sinus Comment Sinus rhythm with no ischemic ST elevation or depression. No abnormal intervals or axis deviation. Departure Impression Primary Impression: Generalized abdominal pain Additional Impression: Chest discomfort Disposition: 01 HOME, SELF-CARE Condition: Stable Departure-Patient Inst. Decision time for Depature: 15:52 Referrals: BRIT SNOW MD (PCP/Family) Primary Care Physician Patient Instructions: Abdominal Pain, Adult ED Add. Discharge Instructions: The exact cause of your abdominal pain is uncertain but may be related to viral illness or a remnant symptom of COVID-19. Drink plenty of clear liquids. Start with clear liquids and gradually advance your diet with small quantities of bland food as tolerated. Avoid fatty/greasy foods and dairy products until your abdominal symptoms have been resolved for at least 48 hours. You may take Tylenol (acetaminophen) up to 650 mg every 6 hours as needed for pain. You may add ibuprofen up to 400 mg every 6 hours as needed for additional pain relief. If you are feeling shortness of breath or chest tightness, you may use the albuterol inhaler provided. You may have some shortness of breath lingering while recovering from COVID-19. Discuss your sensation of chest and jaw discomfort with Dr. Malcolm. He may provide reassurance or recommend further cardiac evaluation such as heart rhythm monitoring. Return to care if you have worsening symptoms, especially if you have recurrent episodes of chest pain. Contact Dr. Snow next week if your symptoms are not improving. All discharge instructions reviewed with patient and/or family. Voiced understanding. Copy Copies To 1: BRIT SNOW MD Copies To 2: MANISHA MALCOLM MD, JOSHUA T MD Oct 19, 2022 15:55
[2022-10-19 15:57] VITALS: BP 111/78
== END 2022-10-19 15:57 | disposition home or self-care (01) ==
LOC: EDUNIT# 11:30 → ER 11:35
DX: R10.84 Generalized abdominal pain (principal); R07.89 Other chest pain; Z90.49 Acquired absence of other specified parts of digestive tract; Z86.16 Personal history of COVID-19; Z91.040 Latex allergy status
CPT/HCPCS: 36415; 71045; 80053; 81000; 83690; 83735; 83874; 84484; 85025; 85379; 85610; 85730; 86141; 87636; 93041

== ENCOUNTER → 2023-07-24 | Outpatient (CLI) | payer BC ==
--- NOTE | 2023-07-24 14:21 | Diagnostic Imaging Report ---
INDICATION: Low back pain and radiculopathy. FINDINGS: There is a mild leftward convexity rotoscoliotic curvature of the lumbar spine with some diminished lumbar lordotic curvature. No listhesis. The vertebral statures are normal. Degenerative changes to the discs and endplates are greatest at L3-L4. No acute appearing abnormality. IMPRESSION: Spondylosis and leftward convexity rotoscoliosis. No fracture or acute osseous pathology. Dictated by: Dictated on workstation # [id number]
== END ==
LOC: RAD 11:01
PROVIDERS: ATTEND Family Medicine
DX: M47.816 Spondylosis without myelopathy or radiculopathy, lumbar region (principal); M41.56 Other secondary scoliosis, lumbar region
CPT/HCPCS: 72100

== ENCOUNTER → 2023-09-10 | Outpatient (CLI) | payer BC ==
--- NOTE | 2023-09-11 09:08 | Diagnostic Imaging Report ---
Indication: Routine screening. Comparison is made with prior mammogram 09/08/2022 and 09/07/2021. 2-D and 3-D bilateral screening mammography was performed with CAD. The current study was also evaluated with a Computer Aided Detection (CAD) system. Scattered fibroglandular densities are identified bilaterally. Previously noted small cyst right breast appears stable. There is a new ovoid circumscribed nodule in the upper inner left breast approximately 6 cm from the nipple. This may represent a small cyst but ultrasound would be recommended. No other masses are identified. No malignant-appearing microcalcifications are seen. IMPRESSION: BI-RADS 0 New circumscribed ovoid nodule in the upper inner left breast 6 cm from the nipple, perhaps a small cyst. Further evaluation of this area with ultrasound is recommended. ACR BI-RADS Category 0: Incomplete. (Needs additional imaging evaluation). Result letter will be mailed to the patient. Note: At least 10% of breast cancer is not imaged by mammography. Dictated by: Dictated on workstation # [id number]
== END ==
LOC: RAD 14:36
PROVIDERS: ATTEND Family Medicine
DX: Z12.31 Encounter for screening mammogram for malignant neoplasm of breast (principal); N63.22 Unspecified lump in the left breast, upper inner quadrant
CPT/HCPCS: 77063; 77067

== ENCOUNTER → 2023-10-11 | Outpatient (CLI) | payer BC ==
--- NOTE | 2023-10-11 16:12 | Diagnostic Imaging Report ---
INDICATION: Left breast nodule noted on recent screening mammogram. Study is performed for followup. Correlation is made with screening mammogram from 09/10/2023. Sonographic interrogation upper inner aspect of the left breast was performed. There are 2 small hypoechoic nodules at 10 o'clock location, 6 cm from the nipple, measuring approximately 3 to 4 mm each. These may represent small lymph nodes. These are near the chest wall. May account for the mammographic density. No other sonographic abnormalities identified. IMPRESSION: Hyperechoic nodule 10 o'clock location left breast, 6 cm from the nipple, perhaps accounting for the mammographic density. These may represent intraparenchymal lymph nodes. Even so, followup mammogram and left breast ultrasound in 6 months is recommended to show continued stability. ACR BI-RADS Category 3: Probably benign findings. Result letter will be mailed to the patient. Note: At least 10% of breast cancer is not imaged by mammography. BI-RADS Category 3 Dictated by: Dictated on workstation # [id number]
== END ==
LOC: RAD 12:30
PROVIDERS: ATTEND Family Medicine
DX: N63.20 Unspecified lump in the left breast, unspecified quadrant (principal)